=== PATIENT | male | born 1945 | race Caucasian/White ===

== ENCOUNTER 2018-11-20 08:27 | Outpatient (CLI) | payer MEDICARE ==
--- NOTE | 2018-11-20 09:23 | XRay Report ---
ROUTINE CHEST, TWO VIEWS: HISTORY: Bronchitis. The trachea, heart, mediastinal contour, lung tyler and bony thorax are unremarkable. IMPRESSION: Unremarkable chest x-ray.
== END 2018-11-20 08:28 | disposition home or self-care (01) ==
LOC: XRAY 08:27
PROVIDERS: ATTEND Internal Medicine
DX: J40 Bronchitis, not specified as acute or chronic (principal); J18.1 Lobar pneumonia, unspecified organism
CPT/HCPCS: 71046

== ENCOUNTER 2018-12-30 11:19 | Outpatient (CLI) | payer MEDICARE ==
--- NOTE | 2018-12-30 13:03 | XRay Report ---
ROUTINE CHEST, TWO VIEWS: HISTORY: Bronchitis. The trachea, heart, mediastinal contour, lung tyler and bony thorax are unremarkable. No significant change since 11/20/18. IMPRESSION: Unremarkable chest x-ray.
== END 2018-12-30 11:20 | disposition home or self-care (01) ==
LOC: XRAY 11:19
PROVIDERS: ATTEND Internal Medicine
DX: J40 Bronchitis, not specified as acute or chronic (principal)
CPT/HCPCS: 71046